=== PATIENT | female | born 1970 | race Caucasian/White ===

== ENCOUNTER 2016-07-30 07:56 | Day surgery (SDC) | payer OTHER ==
[~2016-07-30] VITALS: Ht 175.3 cm; Wt 117.5 kg
[~2016-07-30 07:56] MED LIST: ALBUTEROL SULF8.5 GM IH; ENDOCET 5-3251 EACH PO; HYDROCHLOROTHIA25 MG; HYZAAR 100-21 TABLET PO; Hydrodiuril,Oretic,E PO; LOSARTAN POTAS100 MG; Motrin PO; NATALCARE RX1 TABLE1 PO; NORMODYNE,TRAN200 MG PO; NORVASC10 MG PO; Normodyne,Trandate PO; Percocet 5/325,Endoc PO; Phenergan PO; Zestoretic,Prinzide PO
== END 2016-07-30 10:06 | disposition home or self-care (01) ==
LOC: PAIN 07:56 → SDC 09:00 → PAIN 09:00
PROC: 3E0S33Z Introduction of Anti-inflammatory into Epidural Space, Percutaneous Approach (ICD-10-PCS; principal; 2016-07-30)
DX: M50.20 Other cervical disc displacement, unspecified cervical region (principal); M47.22 Other spondylosis with radiculopathy, cervical region; F41.9 Anxiety disorder, unspecified; I10 Essential (primary) hypertension; E78.5 Hyperlipidemia, unspecified; F17.200 Nicotine dependence, unspecified, uncomplicated; Z88.2 Allergy status to sulfonamides
CPT/HCPCS: J1030; J2250; J3010

== ENCOUNTER 2016-11-07 13:25 | Day surgery (SDC) | payer OTHER ==
[~2016-11-07] VITALS: Ht 175.3 cm; Wt 110.2 kg
== END 2016-11-07 15:00 | disposition home or self-care (01) ==
LOC: PAIN 13:25 → SDC 13:45 → PAIN 15:00
DX: M47.22 Other spondylosis with radiculopathy, cervical region (principal); M54.2 Cervicalgia; G89.29 Other chronic pain; E78.5 Hyperlipidemia, unspecified; I10 Essential (primary) hypertension; M25.512 Pain in left shoulder; F32.9 Major depressive disorder, single episode, unspecified; F17.210 Nicotine dependence, cigarettes, uncomplicated
CPT/HCPCS: J1030; J2250; J3010; S0020

== ENCOUNTER 2016-11-14 12:36 | Day surgery (SDC) | payer OTHER ==
[~2016-11-14] VITALS: Ht 175.3 cm; Wt 110.2 kg
== END 2016-11-14 13:49 | disposition home or self-care (01) ==
LOC: PAIN 12:36
DX: M47.22 Other spondylosis with radiculopathy, cervical region (principal); M50.20 Other cervical disc displacement, unspecified cervical region; F17.200 Nicotine dependence, unspecified, uncomplicated; R51 Headache; M25.519 Pain in unspecified shoulder; I10 Essential (primary) hypertension; E78.5 Hyperlipidemia, unspecified; Z88.2 Allergy status to sulfonamides
CPT/HCPCS: J1030; J2250; J3010; S0020

== ENCOUNTER 2017-01-28 14:07 | Day surgery (SDC) | payer OTHER ==
[~2017-01-28] VITALS: Ht 175.3 cm; Wt 109.3 kg
[~2017-01-28 14:07] MED LIST changes: +ULTRAM50 MG PO
== END 2017-01-28 16:20 | disposition home or self-care (01) ==
LOC: PAIN 14:07 → SDC 14:30 → PAIN 14:30
DX: M47.22 Other spondylosis with radiculopathy, cervical region (principal); M50.11 Cervical disc disorder with radiculopathy, high cervical region; G89.29 Other chronic pain; I10 Essential (primary) hypertension; E78.5 Hyperlipidemia, unspecified; R51 Headache; F17.200 Nicotine dependence, unspecified, uncomplicated; Z79.891 Long term (current) use of opiate analgesic; Z88.2 Allergy status to sulfonamides
CPT/HCPCS: J1030; J2250; J3010; S0020

== ENCOUNTER 2017-02-06 08:15 | Day surgery (SDC) | payer OTHER ==
[~2017-02-06] VITALS: Ht 175.3 cm; Wt 108.8 kg
== END 2017-02-06 10:10 | disposition home or self-care (01) ==
LOC: PAIN 08:15 → SDC 08:30 → PAIN 08:30
PROC: 3E0T3TZ Introduction of Destructive Agent into Peripheral Nerves and Plexi, Percutaneous Approach (ICD-10-PCS; principal; 2017-02-06)
PROC: BR141ZZ Fluoroscopy of Cervical Facet Joint(s) using Low Osmolar Contrast (ICD-10-PCS; principal; 2017-02-06)
DX: M47.22 Other spondylosis with radiculopathy, cervical region (principal); M50.11 Cervical disc disorder with radiculopathy, high cervical region; M25.78 Osteophyte, vertebrae; R51 Headache; E78.5 Hyperlipidemia, unspecified; I10 Essential (primary) hypertension; F17.210 Nicotine dependence, cigarettes, uncomplicated; Z79.891 Long term (current) use of opiate analgesic
CPT/HCPCS: J1030; J2250; J3010; S0020

== ENCOUNTER 2017-06-02 09:33 | Emergency (ER) | payer OTHER ==
[~2017-06-02] VITALS: Ht 175.3 cm; Wt 110.3 kg
[2017-06-02 10:12] LABS: BASOPHIL (%) 0.6 % (0-1); BASOPHIL COUNT 0.1 K/uL (0-0.1); EOSINOPHIL (%) 4.1 % (0-5); EOSINOPHIL COUNT 0.3 K/uL (0-0.3); HEMATOCRIT 53.3 % (36.0-46.0); HEMOGLOBIN 18.4 G/DL (11.9-15.5); IMMATURE GRANULOCYTE (%) 0.5 % (0.0-0.7); LYMPHOCYTE (%) 19.8 % (15-42); LYMPHOCYTE COUNT 1.7 K/uL (1.0-2.8); MCH 30.9 PG (29.0-34.0); MCHC 34.5 G/DL (30.0-36.0); MCV 89.4 FL (83-99); MONOCYTE (%) 7.5 % (3-12); MONOCYTE COUNT 0.6 K/uL (0-0.8); NEUTROPHIL (%) 67.5 % (45-76); NEUTROPHIL COUNT 5.7 K/uL (1.8-6.4); PLATELET COUNT 235 K/uL (156-360); RBC DIS.WIDTH-CV 16.8 % (11.8-14.6); RBC DIS.WIDTH-SD 51.9 % (39-53); RED BLOOD COUNT 5.96 M/uL (3.80-5.20); WHITE BLOOD COUNT 8.4 K/uL (4.1-10.2)
[2017-06-02 10:21] LABS: CHLORIDE 107 mEq/L (99-109); POTASSIUM 3.8 mEq/L (3.7-5.4); SODIUM 142 mEq/L (136-147)
[2017-06-02 10:23] LABS: GLUCOSE 94 mg/dL (70-99)
[2017-06-02 10:26] LABS: CREATININE 0.8 mg/dL (0.6-1.3); GFR ESTIMATE (CALCULATED) > 59 mL/min/
[2017-06-02 10:27] LABS: UREA NITROGEN (BUN) 18 mg/dL (9-23)
[2017-06-02] MEDS ORDERED: ZOFRAN ODT4 MG PO (13:08)
[2017-06-02] MEDS ORDERED: BENTYL20 MG PO (13:08)
[2017-06-02] MEDS ORDERED: IMODIUM A-D2 M2 PO (13:08)
[2017-06-02 13:19] VITALS: BP 129/92
== END 2017-06-02 13:24 | disposition home or self-care (01) ==
LOC: EME 09:33
PROVIDERS: Emergency Medicine
DX: K52.9 Noninfective gastroenteritis and colitis, unspecified (principal); E86.0 Dehydration; I10 Essential (primary) hypertension; F17.200 Nicotine dependence, unspecified, uncomplicated; Z88.2 Allergy status to sulfonamides
CPT/HCPCS: 80048; 85025; 99281; 99285; J2250; J2405; J2795; J7030